=== PATIENT | male | born 1950 | race Caucasian/White ===

== ENCOUNTER 2019-07-28 11:16 | Emergency (ER) | payer MEDICARE, OTHER ==
[~2019-07-28] VITALS: Ht 177.8 cm; Wt 60.3 kg
[2019-07-28 12:47] VITALS: BP 110/66
== END 2019-07-28 12:49 | disposition home or self-care (01) ==
LOC: ER 11:17
DX: S00.11XD Contusion of right eyelid and periocular area, subsequent encounter (principal); F10.10 Alcohol abuse, uncomplicated; Z88.0 Allergy status to penicillin; Y90.9 Presence of alcohol in blood, level not specified
CPT/HCPCS: 99284